=== PATIENT | female | born 2000 | race Caucasian/White ===

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

== ENCOUNTER 2020-07-18 15:48 | Emergency (ER) | payer BC, OTHER ==
[~2020-07-18] VITALS: Ht 152.4 cm; Wt 72.7 kg
[~2020-07-18 15:48] MED LIST: ONDA8TAB9 PO; SUMA100T3 PO
[2020-07-18] MEDS ORDERED: CEPH-264 PO (17:02)
--- NOTE | 2020-07-18 17:03 | PHYS DOC ---
Past History Past Medical History: Migraines Past Surgical History: Other Alcohol Use: None Drug Use: Marijuana Adult General Chief Complaint Chief Complaint: SKIN PROBLEM HPI HPI Patient is a previously healthy 20-year-old female presents the emergency room complaining of a rash on her left leg. She states that initially started on the medial area of her knee. She states it is painful and hot. She denies any itching. She denies any bug bites. She denies any systemic symptoms. It is now moved to an area on her work fernandez. Review of Systems Review of Systems Negative other than noted Allergies Allergies Allergies Coded Allergies Type Severity Reaction Last Updated Verified No Known Drug Allergies 07/18/20 No Physical Exam Physical Exam General: Awake, alert, NAD. Well Nourished, well hydrated. Cooperative HEENT: Atraumatic, EOMI, PERRL, airway patent, moist oral mucosa Neck: Supple, trachea midline MSK: No obvious deformities Skin: Warm, dry. Left lex2 area of erythema and warmth medial knee. 4x3 area of erythema, swelling, warmth anterior fernandez Neuro: A&O x3, speech NL, sensory and motor grossly intact, no focal deficits Psych: Normal affect, normal mood, not suicidal or homicidal EKG EKG [] Radiology/Procedures Radiology/Procedures [] Course & Med Decision Making Course & Med Decision Making Pertinent Labs and Imaging studies reviewed. (See chart for details) Patient is a 20-year-old female who presents to the emergency room complaining of a rash on her leg. This appears to be cellulitis. She will be treated with Keflex. There is no signs of hives, blisters, ulcerations that would suggest a different kind of infectious disease or allergic reaction. This does not appear to be contact dermatitis. Patient denies any chance of being . Patient's test results and vitals while in the ED were fully reviewed and discussed with the patient. Patient is stable and at this time does not need admission to the hospital. We have discussed strict return precautions and the importance of following up with their Primary Care Physician. Patient stated understanding and was given an opportunity to ask any questions. Patient is in agreement with plan. Dragon Disclaimer Dragon Disclaimer This electronic medical record was generated, in whole or in part, using a voice recognition dictation system. Departure Departure: Impression: Primary Impression: Cellulitis Disposition: 01 HOME/RESIDENCE PRIOR TO ADM Condition: STABLE Referrals: PCP,NO (PCP) Patient Instructions: Cellulitis, [id number] Scripts Cephalexin (KEFLEX) 500 Mg Capsule 1 CAP PO TID for cellulitis for 7 Days, #21 CAP 0 Refills Prov: SOFIA LANGE MD 07/18/20 SOFIA LANGE MD Jul 18, 2020 17:03
[2020-07-18 17:30] VITALS: BP 115/78
== END 2020-07-18 17:31 | disposition home or self-care (01) ==
LOC: ER 15:48
DX: L03.116 Cellulitis of left lower limb (principal); G43.909 Migraine, unspecified, not intractable, without status migrainosus
CPT/HCPCS: 99283

== ENCOUNTER 2020-09-08 19:25 | Emergency (ER) | payer BC ==
[~2020-09-08] VITALS: Ht 152.4 cm; Wt 78.5 kg
[~2020-09-08 19:25] MED LIST changes: +CEPH-264 PO
[2020-09-08 19:35] VITALS: BP 122/80
--- NOTE | 2020-09-08 19:56 | PHYS DOC ---
Past History Past Medical History: No Pertinent History Past Surgical History: No Surgical History Additional Past Surgical Histo: TUBES IN BILAT EARS; ADNOIDS Alcohol Use: None Drug Use: Marijuana Adult General Chief Complaint Chief Complaint: VAGINAL BLEEDING HPI HPI Patient is a 20-year-old female patient presented to the ED today complaining of vaginal bleeding. Patient states she started her cycle 2 days ago. She states yesterday she noted she is bleeding heavier than normal, she started she counted 17 clots throughout the day yesterday. She states she soaked up 7 feminine pads today. Patient states she also has abdominal cramping. Denies any chance she is . Denies any back pain, nausea vomiting. Review of Systems Review of Systems Constitutional: Denies fever or chills [] Eyes: Denies change in visual acuity, redness, or eye pain [] HENT: Denies nasal congestion or sore throat [] Respiratory: Denies cough or shortness of breath [] Cardiovascular: No additional information not addressed in HPI [] GI: Reports vaginal bleeding, abdominal cramping, denies nausea, vomiting, bloody stools or diarrhea [] : Denies dysuria or hematuria [] Musculoskeletal: Denies back pain or joint pain [] Integument: Denies rash or skin lesions [] Neurologic: Denies headache, focal weakness or sensory changes [] All other systems were reviewed and found to be within normal limits, except as documented in this note. Allergies Allergies Allergies Coded Allergies Type Severity Reaction Last Updated Verified No Known Drug Allergies 07/18/20 No Physical Exam Physical Exam Constitutional: Well developed, well nourished, no acute distress, non-toxic appearance. [] HENT: Normocephalic, atraumatic, bilateral external ears normal, oropharynx moist, no oral exudates, nose normal. [] Eyes: PERRLA, EOMI, conjunctiva normal, no discharge. [] Neck: Normal range of motion, no tenderness, supple, no stridor. [] Cardiovascular:Heart rate regular rhythm, no murmur [] Lungs & Thorax: Bilateral breath sounds clear to auscultation [] Abdomen: Bowel sounds normal, soft, no tenderness, no masses, no pulsatile masses. [] Pelvic exam , Pelvic is normal, cervix visualized, closed, no CMT, no adnexal tenderness, small amount of bright red blood in the vaginal vault Skin: Warm, dry, no erythema, no rash. [] Back: No tenderness, no CVA tenderness. [] Extremities: No tenderness, no cyanosis, no clubbing, ROM intact, no edema. [] Neurologic: Alert and oriented X 3, normal motor function, normal sensory functi on, no focal deficits noted. [] Psychologic: Affect normal, judgement normal, mood normal. [] Current Patient Data Vital Signs Vital Signs Date Time Temp Pulse Resp B/P (MAP) Pulse Ox O2 Delivery O2 Flow Rate FiO2 09/08/20 19:35 98.7 103 20 122/80 (94) 99 Room Air EKG EKG [] Radiology/Procedures Radiology/Procedures [] Heart Score Risk Factors: Risk Factors: DM, Current or recent (<one month) smoker, HTN, HLP, family history of CAD, obesity. Risk Scores: Risk Factors: DM, Current or recent (<one month) smoker, HTN, HLP, family history of CAD, obesity. Course & Med Decision Making Course & Med Decision Making Pertinent Labs and Imaging studies reviewed. (See chart for details) This is a 20-year-old female patient presented to the ED today with heavy vaginal bleeding that began yesterday, she started her normal cycle 2 days ago. She is also complaining of abdominal cramping. Negative urine hCG, CBC with a normal hemoglobin and hematocrit, UA negative unreadable due to color. Wet prep with no clue cells Patient was discharged with instructions to follow-up with an DIETITIAN CHIEF. She was informed to return to the ED at any point she starts soaking more than 1 feminine pad an hour or has any more concerning symptoms Dragon Disclaimer Dragon Disclaimer This electronic medical record was generated, in whole or in part, using a voice recognition dictation system. Departure Departure: Impression: Primary Impression: Menorrhagia Disposition: 01 DC HOME SELF CARE/HOMELESS Condition: STABLE Referrals: PCP,DALLIN (PCP) ISIDRO WOODARD MD follow up next week Patient Instructions: Menorrhagia, [id number] Additional Instructions: You were evaluated in the emergency room for heavy vaginal bleeding. Please follow-up with an DIETITIAN CHIEF as soon as possible. Your hemoglobin was normal in the emergency room. Come back to the ED at any point your symptoms worsen including but not limited soaking more than 1 feminine pad an hour. Problem Qualifiers Primary Impression: Menorrhagia Menorrhagia type: with regular cycle Qualified Codes: N92.0 - Excessive and frequent menstruation with regular cycle DADA AQUINO APRN Sep 08, 2020 19:56
[2020-09-08 20:25] LABS: BASO % 0 % (0-3); EOS # 0.3 x10^3/uL (0.0-0.7); EOS % 3 % (0-3); HEMATOCRIT 39.9 % (36.0-47.0); HEMOGLOBIN 13.3 g/dL (12.0-15.5); LYMPH % 40 % (24-48); MEAN CORPUSCULAR HEMOGLOBIN 30 pg (25-35); MEAN CORPUSCULAR HGB CONC 33 g/dL (31-37); MEAN CORPUSCULAR VOLUME 90 fL (79-100); MONO # 0.8 x10^3/uL (0.0-1.1); MONO % 8 % (0-9); NEUT # 4.8 x10^3uL (1.8-7.7); NEUT % 48 % (31-73); PLATELET COUNT 264 x10^3/uL (140-400); RED BLOOD COUNT 4.46 x10^6/uL (3.50-5.40); RED CELL DISTRIBUTION WIDTH 12.1 % (11.5-14.5); WHITE BLOOD COUNT 9.9 x10^3/uL (4.0-11.0)
[2020-09-08 20:28] LABS: CLARITY,URINE TURBID; COLOR,URINE RED; RBC,URINE >40 /HPF (0-2); WBC,URINE RARE /HPF (0-4)
[2020-09-08 20:29] LABS: BACTERIA,URINE FEW /HPF (0-FEW); SQUAMOUS EPITHELIAL CELL,UR FEW /LPF
[2020-09-10 22:08] LABS: CHLAMYDIA PROBE Positive (Negative)
== END 2020-09-08 20:55 | disposition home or self-care (01) ==
LOC: ER 19:25
DX: N92.0 Excessive and frequent menstruation with regular cycle (principal); F12.90 Cannabis use, unspecified, uncomplicated; Z98.890 Other specified postprocedural states
CPT/HCPCS: 36415; 81001; 81025; 85025; 87491; 87591; 99283; Q0111